=== PATIENT | male | born 1985 | race Caucasian/White ===

== ENCOUNTER 2018-06-06 18:31 | Emergency (ER) | payer OTHER, SELFPAY ==
[2018-06-06 18:35] VITALS: BP 112/87; PULSE 80; RESP 20; TEMP 36.8; O2SAT 98; BMI 20.3
--- NOTE | 2018-06-06 18:50 | DI.RAD.S_ITS ---
PROCEDURE: XR FINGER LT MIN 2V INDICATIONS: cut finger at work TECHNIQUE: AP hand, 2 views of the 5th finger(s) acquired. COMPARISON: None. FINDINGS: Bones: No fractures or dislocations. No suspicious bony lesions. Soft tissues: No suspicious soft tissue calcifications. No radiopaque foreign body within the fifth digit is identified. IMPRESSION: No radiopaque foreign body identified within the soft tissues of the left fifth digit. No acute osseous abnormality of the left fifth digit. Dictated by: Roibn Skinner M.D. on 06/06/2018 at 19:56 Approved by: Robin Skinner M.D. on 06/06/2018 at 19:58
--- NOTE | 2018-06-06 23:02 | ED.UPPEXIN ---
HPI - Extremity Injury (Upper) General Chief Complaint: Extremity Injury, Upper Stated Complaint: laceration to left hand pinky finger Time Seen by Provider: 06/06/18 22:34 Source: patient Mode of arrival: ambulatory Limitations: no limitations History of Present Illness HPI narrative: This is a 32-year-old male comes to the emergency department with complaint of laceration at the knuckle of the 5th finger on the left hand. Patient states he was working, he was working on a garage door when he slipped and cut his hand on the door itself. Patient states he had gloves on. He states that he wiped the area with alcohol but did not wash it out otherwise. He states it looked like it was down to the bone. I has some numbness in the finger but no weakness that he has noticed. Patient's tetanus is not up-to-date, he politely refuses. Patient denies any other injuries. He has had multiple orthopedic injuries and surgeries in the past but denies any other medical history. Related Data Previous Rx's Medication Instructions Recorded ibuprofen 800 mg PO TIDP PRN #30 tab 05/22/16 fluticasone [Flonase Allergy 1 spray INTRANASAL QDAY #1 bot 11/01/16 Relief] clindamycin HCl 300 mg PO QID #40 cap 06/06/18 hydrocodone-acetaminophen [[place]] 1 tab PO Q6H PRN #7 tab 06/06/18 Allergies Allergy/AdvReac Type Severity Reaction Status Date / Time No Known Drug Allergies Allergy Verified 06/06/18 18:38 Review of Systems Review of Systems All systems reviewed & are unremarkable except as noted in HPI and below Constitutional Denies weakness Musculoskeletal Reports as per HPI, Reports numbness (This finger), Reports tingling and Reports other (Laceration hand) Integumentary/Breasts Reports wounds (Laceration) Neurologic Reports numbness (This finger), Reports tingling and Denies weakness [facility] Social History Smoking Status: Current every day smoker Exam Narrative Exam Narrative: GENERAL: Alert and oriented x three, well-nourished, well-appearing male in mild distress. HEENT: Head normocephalic, atraumatic, EOMI, pupils reactive, face symmetric, moist mucous membranes NECK: Supple, full range of motion EXTREMITIES: Normal range of motion, no clubbing or edema. Neurovascularly intact. Patient has a 1/2 cm laceration over the proximal interphalangeal joint on the left hand, 5th digit. The laceration appears deep into the subcutaneous tissue. I am not able to visualize any tendon. Patient has pain with palpation. Bleeding is stopped at this time. Patient has some decreased sensation over the distal end of the finger in comparison to the other fingers. He has full muscle strength with flexion and extension of the finger against resistance. Cap refills less than 2 sec in all 5 fingers. 2+ radial pulse on the left NEUROLOGICAL: Cranial nerves II through XII grossly intact. Moving all extremities SKIN: Warm, dry, no petechiae, no rashes or lesions. Initial Vital Signs Initial Vital Signs: Vital Signs Temperature 98.2 F 06/06/18 18:35 Pulse Rate 80 06/06/18 18:35 Respiratory Rate 20 06/06/18 18:35 Blood Pressure 112/87 06/06/18 18:35 Pulse Oximetry 98 06/06/18 18:35 Procedures Laceration Repair Laceration 1: Site: hand (5th finger) Side (If applicable): left Size (cm): 1.5 Description: linear Depth: simple, single layer Local Anesthetic: lidocaine 1% Amount of anesthesia used (mL): 2.5 Pre-repair: wound explored, irrigated extensively, deep structures intact and extensive debridement Skin layer closed with: nylon Size (cm): 4-0 Number of sutures: 4 Technique: simple, interrupted Course Orders Ordered: Discontinued Medications Hydrocodone Bitart/Acetaminophen (Vicodin Prepack) 1 bottle MISC SEEINSTR ONE Stop: 06/06/18 23:00 Last Admin: 06/06/18 23:05 Dose: 1 bottle Clindamycin HCl (Cleocin) 300 mg PO NOW ONE Stop: 06/06/18 23:00 Last Admin: 06/06/18 23:05 Dose: 300 mg Vital Signs - 8 hr 06/06/18 23:25 Pulse Rate 72 Respiratory Rate 13 Blood Pressure 124/78 Pulse Oximetry 100 MDM - Extremity Injury (Upper) Imaging Data finger xray: Radiologist's impression: [address] [address] XRay Report Signed Patient: Erasmo Bella [facility]#: [id number] : 1985Acct:[id number] Age/Sex: 32 / MDate of Service: 06/06/18 Loc: ED Accession Number: [id number] Procedure: XR finger LT min 2V Ordering Provider: Jany Pete PROCEDURE: XR FINGER LT MIN 2V INDICATIONS: cut finger at work TECHNIQUE: AP hand, 2 views of the 5th finger(s) acquired. COMPARISON: None. FINDINGS: Bones: No fractures or dislocations. No suspicious bony lesions. Soft tissues: No suspicious soft tissue calcifications. No radiopaque foreign body within the fifth digit is identified. IMPRESSION: No radiopaque foreign body identified within the soft tissues of the left fifth digit. No acute osseous abnormality of the left fifth digit. Dictated by: Robin Skinner M.D. on 06/06/2018 at 19:56 Approved by: Robin Skinner M.D. on 06/06/2018 at 19:58 MDM Narrative Medical decision making narrative: Patient has decreased sensation so he may have had some nerve injury but he has full muscle strength and movement the finger. Laceration was repaired, he was started on antibiotics as sounds like may have been a dirty wound although cleaned out here in the department. Patient did not want to have a tetanus and was very clear in this. He is not up-to-date. Patient tolerated procedure well, was placed with a splint to avoid Um pulling or tearing the stitches and then asked to return for removal in 7-10 days. Discussed signs and symptoms to watch for and reasons to return. Discharge Plan Departure Patient Disposition: Home Clinical Impression: Laceration of finger Discharge Date/Time: 06/06/18 23:26 Interventions: ED Discharge Assessment Last Done: 06/06/18 23:25 Instructions: DI for Laceration Repair -- Finger Activity Restrictions/Additional Instructions: Wound Care: Keep wound(s) clean and dry. Wash twice daily with soap and water only. Do not use over the counter products (alcohol or peroxide)on the wounds unless instructed by a physician. You may use triple antibiotic ointment 2 times daily. If wound condition worsens (increased/expanding redness, developing fluid blisters, or worsening pain), either contact your doctor for an urgent re-assessment , or return to the Emergency Department. Avoid bending or flexing at the knuckle, where splint to prevent bending and tearing out of sutures. Return to the Emergency Department for any new or worsening symptoms. Return to the ED, urgent care, or vist a primary care doctor for removal or suture or jonel in 7-10 days. Return if fever greater than 100.4 Fahrenheit, increased swelling, increasing pain or worsening symptoms such as increased discharge or spreading redness. Use warm compresses 3 times daily for 20 minutes to the affected area. If there is packing in place do not pull it out, if it falls out do not try to replace it. Prescriptions: New clindamycin HCl 300 mg capsule 300 mg PO QID Qty: 40 RF: 0 hydrocodone-acetaminophen [[place]] 5-325 mg tablet 1 tab PO Q6H PRN (Reason: pain) Qty: 7 RF: 0 No Action ibuprofen 800 MG tablet 800 mg PO TIDP PRNQty: 30 RF: 0 fluticasone [Flonase Allergy Relief] 9.9 ML spray,suspension 1 spray Intranasal QDAY Qty: 1 RF: 0
[2018-06-06] MEDS: CLINDAMYCIN 150 MG CAPSULE 300 MG PO (23:05)
[2018-06-06] MEDS: HYDROCODONE/ACET 5/325 PREPACK 1 BOTTLE MISC (23:05)
[2018-06-06 23:25] VITALS: BP 124/78; PULSE 72; RESP 13; O2SAT 100
--- NOTE | 2018-06-07 04:23 | ED_ITS ---
HPI - Extremity Injury (Upper) General Chief Complaint: Extremity Injury, Upper Stated Complaint: laceration to left hand pinky finger Time Seen by Provider: 06/06/18 22:34 Source: patient Mode of arrival: ambulatory Limitations: no limitations History of Present Illness HPI narrative: This is a 32-year-old male comes to the emergency department with complaint of laceration at the knuckle of the 5th finger on the left hand. Patient states he was working, he was working on a garage door when he slipped and cut his hand on the door itself. Patient states he had gloves on. He states that he wiped the area with alcohol but did not wash it out otherwise. He states it looked like it was down to the bone. I has some numbness in the finger but no weakness that he has noticed. Patient's tetanus is not up-to-date, he politely refuses. Patient denies any other injuries. He has had multiple orthopedic injuries and surgeries in the past but denies any other medical history. Related Data Previous Rx's Medication Instructions Recorded ibuprofen 800 mg PO TIDP PRN #30 tab 05/22/16 fluticasone [Flonase Allergy 1 spray INTRANASAL QDAY #1 bot 11/01/16 Relief] clindamycin HCl 300 mg PO QID #40 cap 06/06/18 hydrocodone-acetaminophen [[place]] 1 tab PO Q6H PRN #7 tab 06/06/18 Allergies Allergy/AdvReac Type Severity Reaction Status Date / Time No Known Drug Allergies Allergy Verified 06/06/18 18:38 Review of Systems Review of Systems All systems reviewed & are unremarkable except as noted in HPI and below Constitutional Denies weakness Musculoskeletal Reports as per HPI, Reports numbness (This finger), Reports tingling and Reports other (Laceration hand) Integumentary/Breasts Reports wounds (Laceration) Neurologic Reports numbness (This finger), Reports tingling and Denies weakness [facility] Social History Smoking Status: Current every day smoker Exam Narrative Exam Narrative: GENERAL: Alert and oriented x three, well-nourished, well- appearing male in mild distress. HEENT: Head normocephalic, atraumatic, EOMI, pupils reactive, face symmetric, moist mucous membranes NECK: Supple, full range of motion EXTREMITIES: Normal range of motion, no clubbing or edema. Neurovascularly intact. Patient has a 1/2 cm laceration over the proximal interphalangeal joint on the left hand, 5th digit. The laceration appears deep into the subcutaneous tissue. I am not able to visualize any tendon. Patient has pain with palpation. Bleeding is stopped at this time. Patient has some decreased sensation over the distal end of the finger in comparison to the other fingers. He has full muscle strength with flexion and extension of the finger against resistance. Cap refills less than 2 sec in all 5 fingers. 2+ radial pulse on the left NEUROLOGICAL: Cranial nerves II through XII grossly intact. Moving all extremities SKIN: Warm, dry, no petechiae, no rashes or lesions. Initial Vital Signs Initial Vital Signs: Vital Signs Temperature 98.2 F 06/06/18 18:35 Pulse Rate 80 06/06/18 18:35 Respiratory Rate 20 06/06/18 18:35 Blood Pressure 112/87 06/06/18 18:35 Pulse Oximetry 98 06/06/18 18:35 Procedures Laceration Repair Laceration 1: Site: hand (5th finger) Side (If applicable): left Size (cm): 1.5 Description: linear Depth: simple, single layer Local Anesthetic: lidocaine 1% Amount of anesthesia used (mL): 2.5 Pre-repair: wound explored, irrigated extensively, deep structures intact and extensive debridement Skin layer closed with: nylon Size (cm): 4-0 Number of sutures: 4 Technique: simple, interrupted Course Orders Ordered: Discontinued Medications Hydrocodone Bitart/Acetaminophen (Vicodin Prepack) 1 bottle MISC SEEINSTR ONE Stop: 06/06/18 23:00 Last Admin: 06/06/18 23:05 Dose: 1 bottle Clindamycin HCl (Cleocin) 300 mg PO NOW ONE Stop: 06/06/18 23:00 Last Admin: 06/06/18 23:05 Dose: 300 mg Vital Signs - 8 hr 06/06/18 23:25 Pulse Rate 72 Respiratory Rate 13 Blood Pressure 124/78 Pulse Oximetry 100 MDM - Extremity Injury (Upper) Imaging Data finger xray: Radiologist's impression: [address] [address] XRay Report Signed Patient: Erasmo Bella [facility]#: [id number] : 1985Acct:[id number] Age/Sex: 32 / MDate of Service: 06/06/18 Loc: ED Accession Number: [id number] Procedure: XR finger LT min 2V Ordering Provider: Jany Pete PROCEDURE: XR FINGER LT MIN 2V INDICATIONS: cut finger at work TECHNIQUE: AP hand, 2 views of the 5th finger(s) acquired. COMPARISON: None. FINDINGS: Bones: No fractures or dislocations. No suspicious bony lesions. Soft tissues: No suspicious soft tissue calcifications. No radiopaque foreign body within the fifth digit is identified. IMPRESSION: No radiopaque foreign body identified within the soft tissues of the left fifth digit. No acute osseous abnormality of the left fifth digit. Dictated by: Robin Skinner M.D. on 06/06/2018 at 19:56 Approved by: Robin Skinner M.D. on 06/06/2018 at 19:58 MDM Narrative Medical decision making narrative: Patient has decreased sensation so he may have had some nerve injury but he has full muscle strength and movement the finger. Laceration was repaired, he was started on antibiotics as sounds like may have been a dirty wound although cleaned out here in the department. Patient did not want to have a tetanus and was very clear in this. He is not up -to-date. Patient tolerated procedure well, was placed with a splint to avoid Um pulling or tearing the stitches and then asked to return for removal in 7-10 days. Discussed signs and symptoms to watch for and reasons to return. Discharge Plan Departure Patient Disposition: Home Clinical Impression: Laceration of finger Discharge Date/Time: 06/06/18 23:26 Interventions: ED Discharge Assessment Last Done: 06/06/18 23:25 Instructions: DI for Laceration Repair -- Finger Activity Restrictions/Additional Instructions: Wound Care: Keep wound(s) clean and dry. Wash twice daily with soap and water only. Do not use over the counter products (alcohol or peroxide)on the wounds unless instructed by a physician. You may use triple antibiotic ointment 2 times daily. If wound condition worsens (increased/expanding redness, developing fluid blisters, or worsening pain), either contact your doctor for an urgent re- assessment , or return to the Emergency Department. Avoid bending or flexing at the knuckle, where splint to prevent bending and tearing out of sutures. Return to the Emergency Department for any new or worsening symptoms. Return to the ED, urgent care, or vist a primary care doctor for removal or suture or jonel in 7-10 days. Return if fever greater than 100.4 Fahrenheit, increased swelling, increasing pain or worsening symptoms such as increased discharge or spreading redness. Use warm compresses 3 times daily for 20 minutes to the affected area. If there is packing in place do not pull it out, if it falls out do not try to replace it. Prescriptions: New clindamycin HCl 300 mg capsule 300 mg PO QID Qty: 40 RF: 0 hydrocodone-acetaminophen [[place]] 5-325 mg tablet 1 tab PO Q6H PRN (Reason: pain) Qty: 7 RF: 0 No Action ibuprofen 800 MG tablet 800 mg PO TIDP PRNQty: 30 RF: 0 fluticasone [Flonase Allergy Relief] 9.9 ML spray,suspension 1 spray Intranasal QDAY Qty: 1 RF: 0
== END 2018-06-06 23:26 | disposition home or self-care (01) ==
PROVIDERS: Emergency Provider Emergency Medicine
DX: S61.217A Laceration without foreign body of left little finger without damage to nail, initial encounter (principal); W26.8XXA Contact with other sharp object(s), not elsewhere classified, initial encounter; Y99.0 Civilian activity done for income or pay
CPT/HCPCS: 12001; 73140; 99282; 99283

== ENCOUNTER 2019-03-08 12:05 | Emergency (ER) | payer OTHER, MEDICAID, SELFPAY ==
[2019-03-08 12:05] VITALS: BP 130/78; PULSE 81; RESP 15; TEMP 37.1; O2SAT 98
--- NOTE | 2019-03-08 12:20 | ED.URI ---
HPI - URI/Sore Throat <DENIS Alvarez - Last Filed: 03/08/19 13:10> General Chief Complaint: Upper Respiratory Symptoms Stated Complaint: Possible strep throat Time Seen by Provider: 03/08/19 12:09 Source: patient Mode of arrival: ambulatory Limitations: no limitations History of Present Illness HPI Narrative: The patient is a 33-year-old male current smoker with history of broken hand who presents with a chief complaint of a sore throat. It has been going on since last week when he went to see [email or web address]. He states that he lost his voice within last night his throat started burning worse than before. He does not abuse exposed to any sick people at the [employer]. He denies any fevers nausea vomiting or diarrhea. Denies any chest pain, respiratory distress, shortness of breath, cough or ear pain. Related Data Previous Rx's Medication Instructions Recorded fluticasone propionate [Flonase 1 spray INTRANASAL QDAY #1 bot 11/01/16 Allergy Relief] Allergies Allergy/AdvReac Type Severity Reaction Status Date / Time No Known Drug Allergies Allergy Verified 06/06/18 18:38 Review of Systems <DENIS Alvarez - Last Filed: 03/08/19 13:10> Review of Systems GENERAL: Denies chills, fatigue, malaise, fever, sweats. HEENT: See HPI RESPIRATORY: Denies dyspnea, cough, wheezing, hemoptysis, sputum. CARDIOVASCULAR: Denies chest pain, palpitations, orthopnea, edema, GASTROINTESTINAL: Denies nausea, vomiting, abdominal pain, diarrhea, constipation, melena. : Denies dysuria, frequency, incontinence, hematuria, urinary retention. MUSCULOSKELETAL: denies weakness, joint pain, or bony pain SKIN: Denies rash, skin lesions, or other NEUROLOGIC: Denies weakness, headache, numbness, change in speech, confusion, seizures, incoordination. PSYCHIATRIC: No concerning psychosocial issues. 12 point review of systems is negative except for those stated above PFSH <DENIS Alvarez - Last Filed: 03/08/19 13:10> Medical History (Updated 03/08/19 @ 12:50 by DENIS Alvaerz) Family history non-contributory (Acute) Social History Smoking Status: Current every day smoker Social History Smoking Status: Current every day smoker Exam <DENIS Alvarez - Last Filed: 03/08/19 13:10> Narrative Exam Narrative: GENERAL: This is a well-nourished, well-developed patient, in mild distress. HEAD: Atraumatic. Normocephalic. No temporal or scalp tenderness. EYES: Pupils equal round and reactive. Extraocular motions intact. No scleral icterus. No injection or drainage. ENT: Nose without bleeding, purulent drainage or septal hematoma. Throat with slight erythema but no tonsillar hypertrophy and no exudate. Uvula midline. Airway patent. NECK: Trachea midline. No JVD or lymphadenopathy. Supple, nontender, no meningeal signs. CARDIOVASCULAR: Regular rate and rhythm without murmurs, gallops, or rubs. RESPIRATORY: Clear to auscultation. Breath sounds equal bilaterally. No wheezes, rales, or rhonchi. No cough. No increased respiratory effort. No accessory muscle use. No retractions. GASTROINTESTINAL: Abdomen soft, non-tender, nondistended. No hepato-splenomegaly, or palpable masses. No guarding. EXTREMITIES: No clubbing, cyanosis, or edema. No joint tenderness, effusion, or edema noted. BACK: Nontender without deformity or crepitance. No flank tenderness. NEURO: AOx3. SKIN: No rash or erythema. Initial Vital Signs Initial Vital Signs: Vital Signs Temperature 98.8 F 03/08/19 12:05 Pulse Rate 81 03/08/19 12:05 Respiratory Rate 15 03/08/19 12:05 Blood Pressure 130/78 03/08/19 12:05 Pulse Oximetry 98 03/08/19 12:05 <Jermaine Lobo DO - Last Filed: 03/08/19 14:33> Initial Vital Signs Initial Vital Signs: Vital Signs Temperature 98.8 F 03/08/19 12:05 Pulse Rate 81 03/08/19 12:05 Respiratory Rate 15 03/08/19 12:05 Blood Pressure 130/78 03/08/19 12:05 Pulse Oximetry 98 03/08/19 12:05 Course <DENIS Alvarez - Last Filed: 03/08/19 13:10> Vital Signs - 8 hr 03/08/19 12:05 Temperature 98.8 F Pulse Rate 81 Respiratory Rate 15 Blood Pressure 130/78 Pulse Oximetry 98 <Jermaine ChowDO serafin - Last Filed: 03/08/19 14:33> Vital Signs - 8 hr 03/08/19 12:05 Temperature 98.8 F Pulse Rate 81 Respiratory Rate 15 Blood Pressure 130/78 Pulse Oximetry 98 MDM - URI/Sore Throat <LUCÍA Alvarez-BC - Last Filed: 03/08/19 13:10> Lab Data Point of Care Testing Rapid Strep A Negative MDM Narrative Medical decision making narrative: The patient is a 33-year-old male who presents with a chief complaint of a sore throat. He is concerned about strep throat given the last night his sore throat got worse. He is afebrile in the emergency department, denies any fevers nausea vomiting or diarrhea. Denies ear pain. He tested negative for strep in the ER. I discussed at length symptomatic care, not using antibiotics for viral illnesses. It is suspicious that he had pharyngitis with his sore throat, indicating a likely viral syndrome. Encouraged [id number] remedies such as Cepacol. I discussed at length follow up with PCP in coming back to the ER for any acute concerns. Patient has no questions or concerns upon discharge. <Jermaine LoboDO - Last Filed: 03/08/19 14:33> Lab Data Point of Care Testing Rapid Strep A Negative Discharge Plan Departure Patient Disposition: Home Clinical Impression: Pharyngitis Qualifiers: Pharyngitis/tonsillitis etiology: unspecified etiology Qualified Code(s): J02.9 - Acute pharyngitis, unspecified Discharge Date/Time: 03/08/19 13:06 Interventions: ED Discharge Assessment Last Done: 03/08/19 13:06 Instructions: DI for Pharyngitis/Tonsillopharyngitis -- Adult Activity Restrictions/Additional Instructions: Your strep test came back negative in the emergency department. Please follow up with primary care provider as needed. I have given you contact information for the [facility] educational resource coordinator, who can help you identified PCP. Other resources include the [facility], [facility], etc. Please monitor for difficulty breathing, lack of improvement, worsening, concern of heart attack or stroke. Please come back to emergency department for any acute concerns. Prescriptions: No Action fluticasone propionate [Flonase Allergy Relief] 9.9 ML spray,suspension 1 spray Intranasal QDAY Qty: 1 RF: 0 Referrals: [facility] [Outside] <Jermaine Lobo DO - Last Filed: 03/08/19 14:33> Cosign ED Attending Butch Attestation: I was available for consultation during this patient's emergency department encounter
--- NOTE | 2019-03-08 12:23 | ED_ITS ---
HPI - URI/Sore Throat <DENIS Alvarez - Last Filed: 03/08/19 13:10> General Chief Complaint: Upper Respiratory Symptoms Stated Complaint: Possible strep throat Time Seen by Provider: 03/08/19 12:09 Source: patient Mode of arrival: ambulatory Limitations: no limitations History of Present Illness HPI Narrative: The patient is a 33-year-old male current smoker with history of broken hand who presents with a chief complaint of a sore throat. It has been going on since last week when he went to see [employer]. He states that he lost his voice within last night his throat started burning worse than before. He does not abuse exposed to any sick people at the [employer]. He denies any fevers nausea vomiting or diarrhea. Denies any chest pain, respiratory distress, shortness of breath, cough or ear pain. Related Data Previous Rx's Medication Instructions Recorded fluticasone propionate [Flonase 1 spray INTRANASAL QDAY #1 bot 11/01/16 Allergy Relief] Allergies Allergy/AdvReac Type Severity Reaction Status Date / Time No Known Drug Allergies Allergy Verified 06/06/18 18:38 Review of Systems <DENIS Alvarez - Last Filed: 03/08/19 13:10> Review of Systems GENERAL: Denies chills, fatigue, malaise, fever, sweats. HEENT: See HPI RESPIRATORY: Denies dyspnea, cough, wheezing, hemoptysis, sputum. CARDIOVASCULAR: Denies chest pain, palpitations, orthopnea, edema, GASTROINTESTINAL: Denies nausea, vomiting, abdominal pain, diarrhea, constipation, melena. : Denies dysuria, frequency, incontinence, hematuria, urinary retention. MUSCULOSKELETAL: denies weakness, joint pain, or bony pain SKIN: Denies rash, skin lesions, or other NEUROLOGIC: Denies weakness, headache, numbness, change in speech, confusion, seizures, incoordination. PSYCHIATRIC: No concerning psychosocial issues. 12 point review of systems is negative except for those stated above PFSH <DENIS Alvarez - Last Filed: 03/08/19 13:10> Medical History (Updated 03/08/19 @ 12:50 by DENIS Alvarez) Family history non-contributory (Acute) Social History Smoking Status: Current every day smoker Social History Smoking Status: Current every day smoker Exam <DENIS Alvarez - Last Filed: 03/08/19 13:10> Narrative Exam Narrative: GENERAL: This is a well-nourished, well-developed patient, in mild distress. HEAD: Atraumatic. Normocephalic. No temporal or scalp tenderness. EYES: Pupils equal round and reactive. Extraocular motions intact. No scleral icterus. No injection or drainage. ENT: Nose without bleeding, purulent drainage or septal hematoma. Throat with slight erythema but no tonsillar hypertrophy and no exudate. Uvula midline. Airway patent. NECK: Trachea midline. No JVD or lymphadenopathy. Supple, nontender, no meningeal signs. CARDIOVASCULAR: Regular rate and rhythm without murmurs, gallops, or rubs. RESPIRATORY: Clear to auscultation. Breath sounds equal bilaterally. No wheezes, rales, or rhonchi. No cough. No increased respiratory effort. No accessory muscle use. No retractions. GASTROINTESTINAL: Abdomen soft, non-tender, nondistended. No hepato- splenomegaly, or palpable masses. No guarding. EXTREMITIES: No clubbing, cyanosis, or edema. No joint tenderness, effusion, or edema noted. BACK: Nontender without deformity or crepitance. No flank tenderness. NEURO: AOx3. SKIN: No rash or erythema. Initial Vital Signs Initial Vital Signs: Vital Signs Temperature 98.8 F 03/08/19 12:05 Pulse Rate 81 03/08/19 12:05 Respiratory Rate 15 03/08/19 12:05 Blood Pressure 130/78 03/08/19 12:05 Pulse Oximetry 98 03/08/19 12:05 <Jermaine Lobo DO - Last Filed: 03/08/19 14:33> Initial Vital Signs Initial Vital Signs: Vital Signs Temperature 98.8 F 03/08/19 12:05 Pulse Rate 81 03/08/19 12:05 Respiratory Rate 15 03/08/19 12:05 Blood Pressure 130/78 03/08/19 12:05 Pulse Oximetry 98 03/08/19 12:05 Course <DENIS Alvarez - Last Filed: 03/08/19 13:10> Vital Signs - 8 hr 03/08/19 12:05 Temperature 98.8 F Pulse Rate 81 Respiratory Rate 15 Blood Pressure 130/78 Pulse Oximetry 98 <Jemraine ChowDO serafin - Last Filed: 03/08/19 14:33> Vital Signs - 8 hr 03/08/19 12:05 Temperature 98.8 F Pulse Rate 81 Respiratory Rate 15 Blood Pressure 130/78 Pulse Oximetry 98 MDM - URI/Sore Throat <LUCÍA Alvarez-BC - Last Filed: 03/08/19 13:10> Lab Data Point of Care Testing Rapid Strep A Negative MDM Narrative Medical decision making narrative: The patient is a 33-year-old male who presents with a chief complaint of a sore throat. He is concerned about strep throat given the last night his sore throat got worse. He is afebrile in the emergency department, denies any fevers nausea vomiting or diarrhea. Denies ear pain. He tested negative for strep in the ER. I discussed at length symptomatic care, not using antibiotics for viral illnesses. It is suspicious t hat he had pharyngitis with his sore throat, indicating a likely viral syndrome. Encouraged ksgw-kll-yfarnds remedies such as Cepacol. I discussed at length follow up with PCP in coming back to the ER for any acute concerns. Patient has no questions or concerns upon discharge. <Jermaine ChowDO serafin - Last Filed: 03/08/19 14:33> Lab Data Point of Care Testing Rapid Strep A Negative Discharge Plan Departure Patient Disposition: Home Clinical Impression: Pharyngitis Qualifiers: Pharyngitis/tonsillitis etiology: unspecified etiology Qualified Code(s): J02.9 - Acute pharyngitis, unspecified Discharge Date/Time: 03/08/19 13:06 Interventions: ED Discharge Assessment Last Done: 03/08/19 13:06 Instructions: DI for Pharyngitis/Tonsillopharyngitis -- Adult Activity Restrictions/Additional Instructions: Your strep test came back negative in the emergency department. Please follow up with primary care provider as needed. I have given you contact information for the [facility] human resources recruiter, who can help you identified PCP. Other resources include the [facility], [facility], etc. Please monitor for difficulty breathing, lack of improvement, worsening, concern of heart attack or stroke. Please come back to emergency department for any acute concerns. Prescriptions: No Action fluticasone propionate [Flonase Allergy Relief] 9.9 ML spray,suspension 1 spray Intranasal QDAY Qty: 1 RF: 0 Referrals: [facility] [Outside] <Jermaine Lobo DO - Last Filed: 03/08/19 14:33> Cosign ED Attending Franciaature Attestation: I was available for consultation during this patient's emergency department encounter
== END 2019-03-08 13:06 | disposition home or self-care (01) ==
PROVIDERS: Emergency Provider Nurse Practitioner Family
DX: J02.9 Acute pharyngitis, unspecified (principal)
CPT/HCPCS: 87880; 99282; 99283

== ENCOUNTER 2021-07-07 12:40 | Emergency (ER) | payer SELFPAY ==
[2021-07-07 13:04] VITALS: BP 144/79; PULSE 104; RESP 16; TEMP 36.8; O2SAT 97; BMI 20.9
[2021-07-07] MEDS: KETOROLAC 30 MG/ML VIAL IM (13:56)
--- NOTE | 2021-07-07 14:29 | ED_ITS ---
HPI - URI/Sore Throat <DENIS Alvarez - Last Filed: 07/07/21 15:21> General Chief Complaint: Upper Respiratory Symptoms Stated Complaint: throat hurts Time Seen by Provider: 07/07/21 13:08 Source: patient Mode of arrival: Ambulatory Limitations: no limitations History of Present Illness HPI Narrative: The patient is a 35-year-old male current smoker who presents with a chief complaint of sore throat for the past 6 weeks or so. He denies any fevers nausea vomiting or diarrhea. He has not taken anything to feel better the knee occasional DayQuil or NyQuil. He states that he did have COVID a few months ago, is not vaccinated for COVID. No known strep exposures. No cough. Does note slight congestion. The patient states that he smokes marijuana and cigarettes. States that he has a history of acid reflux but it is ?well controlled.Denies any ear pain or pressure Related Data Previous Rx's Medication Instructions Recorded fluticasone propionate 50 1 spray INTRANASAL QDAY #1 bot 11/01/16 mcg/actuation nasal spray,suspension (Flonase Allergy Relief) Allergies Allergy/AdvReac Type Severity Reaction Status Date / Time No Known Drug Allergies Allergy Verified 07/07/21 13:04 Review of Systems <DENIS Alvarez - Last Filed: 07/07/21 15:21> Review of Systems Narrative: GENERAL: Denies chills, fatigue, malaise, fever, sweats. HEENT: See HPI RESPIRATORY: Denies dyspnea, cough, wheezing, hemoptysis, sputum. CARDIOVASCULAR: Denies chest pain, palpitations, orthopnea, edema, GASTROINTESTINAL: Denies nausea, vomiting, abdominal pain, diarrhea, constipation, melena. : Denies dysuria, frequency, incontinence, hematuria, urinary retention. MUSCULOSKELETAL: denies weakness, joint pain, or bony pain SKIN: Denies rash, skin lesions, or other NEUROLOGIC: Denies weakness, headache, numbness, change in speech, confusion, seizures, incoordination. PSYCHIATRIC: No concerning psychosocial issues. 12 point review of systems is negative except for those stated above Patient History <DENIS Alvarez - Last Filed: 07/07/21 15:21> Medical History (Updated 07/07/21 @ 14:32 by DENIS Alvarez) Family history non-contributory Social History Smoking Status: Current every day smoker Smoking Status: Current every day smoker alcohol intake frequency: a few times a week Substance Use Type: marijuana Exam <DENIS Alvarez - Last Filed: 07/07/21 15:21> Narrative Exam Narrative: GENERAL: This is a well-nourished, well-developed patient, no acute distress HEAD: Atraumatic. Normocephalic. No temporal or scalp tenderness. EYES: Pupils equal round and reactive. Extraocular motions intact. No scleral icterus. No injection or drainage. ENT: Nose without bleeding, purulent drainage or septal hematoma. Throat without erythema, tonsillar hypertrophy or exudate. Uvula midline. Slight red raised bumps noted on posterior aspect of tongue. Airway patent. Bilateral TMs pearly pham. NECK: Trachea midline. No JVD or lymphadenopathy. Supple, nontender, no meningeal signs. CARDIOVASCULAR: Regular rate and rhythm RESPIRATORY: Clear to auscultation. Breath sounds equal bilaterally. No wheezes, rales, or rhonchi. No cough. No increased respiratory effort. No accessory muscle use. EXTREMITIES: No clubbing, cyanosis, or edema. No joint tenderness, effusion, or edema noted. BACK: Nontender without deformity or crepitance. No flank tenderness. NEURO: AOx3. SKIN: No rash or erythema on visible skin Initial Vital Signs Initial Vital Signs: Vital Signs Temperature 98.3 F 07/07/21 13:04 Pulse Rate 104 H 07/07/21 13:04 Respiratory Rate 16 07/07/21 13:04 Blood Pressure 144/79 H 07/07/21 13:04 Pulse Oximetry 97 07/07/21 13:04 <Jermaine Lobo DO - Last Filed: 07/07/21 17:45> Initial Vital Signs Initial Vital Signs: Vital Signs Temperature 98.3 F 07/07/21 13:04 Pulse Rate 104 H 07/07/21 13:04 Respiratory Rate 16 07/07/21 13:04 Blood Pressure 144/79 H 07/07/21 13:04 Pulse Oximetry 97 07/07/21 13:04 Scores <DENIS Alvarez - Last Filed: 07/07/21 15:21> GCS [place] coma scale eye opening: Spontaneous Lisa coma scale verbal response: Orientated [place] coma scale motor response: Obey commands [place] coma scale total score: 15 <Jermaine Lobo DO - Last Filed: 07/07/21 17:45> GCS Lisa coma scale total score: 15 Course <DENIS Alvarez - Last Filed: 07/07/21 15:21> Orders Ordered: ED Orders 07/07/21 13:49 Throat Culture Stat Discontinued Medications Ketorolac Tromethamine (Ketorolac 30 Mg/Ml Vial) 30 mg IM NOW ONE Stop: 07/07/21 13:44 Last Admin: 07/07/21 13:56 Dose: 30 mg Documented by: DHRUV Vital Signs Vital signs: Vital Signs - 8 hr 07/07/21 13:04 Temperature 98.3 F Pulse Rate 104 H Respiratory Rate 16 Blood Pressure 144/79 H Pulse Oximetry 97 <Jermaine Lobo DO - Last Filed: 07/07/21 17:45> Orders Ordered: ED Orders 07/07/21 13:49 Throat Culture Stat Discontinued Medications Ketorolac Tromethamine (Ketorolac 30 Mg/Ml Vial) 30 mg IM NOW ONE Stop: 07/07/21 13:44 Last Admin: 07/07/21 13:56 Dose: 30 mg Documented by: DHRUV Vital Signs Vital signs: Vital Signs - 8 hr 07/07/21 13:04 Temperature 98.3 F Pulse Rate 104 H Respiratory Rate 16 Blood Pressure 144/79 H Pulse Oximetry 97 MDM - URI/Sore Throat <DENIS Alvarez - Last Filed: 07/07/21 15:21> Lab Data Labs: Point of Care Testing Rapid Strep A Negative MDM Narrative Medical decision making narrative: The patient is a 35-year-old male who presents with several weeks of sore throat. He test negative for rapid strep today. Throat culture and viral culture given raise red thumbs is pending. Discussed at length crte-osj-mssnymh measures such as Tylenol, Motrin, Cepacol etcetera. Encouraged follow-up with primary care provider and gave him contact information to obtain a primary care provider. Patient has been hemodynamically stable in no acute distress throughout his stay in the emergency department. Patient has no questions or concerns upon discharge states understanding return precautions as well as follow-up care. <Jermaine Lobo DO - Last Filed: 07/07/21 17:45> Lab Data Labs: Point of Care Testing Rapid Strep A Negative Discharge Plan Departure Patient Disposition: Home Clinical Impression: Pharyngitis Instructions: Sore Throat, DI for Viral Pharyngitis Activity Restrictions/Additional Instructions: Thank you for trusting us with your care today. As discussed your rapid strep is negative. Will take a few days with a throat culture and throat viral c ulture to return. If something comes up on those we will call you. In the meantime please use zhku-ncw-xvrmizm remedies as needed and able such as Tylenol, ibuprofen, I also recommend numbing throat sprays and drops such as Cepacol. Please be sure to use a humidifier in your bedroom, make sure that your mucous membranes are not getting to dry, and avoid smoking. You can contact [phone] to help establish a primary care provider. Please come back to the emergency department for any acute concerns Prescriptions: No Action fluticasone propionate [Flonase Allergy Relief] 9.9 ML spray,suspension 1 spray Intranasal QDAY Qty: 1 0RF <Jermaine Lobo DO - Last Filed: 07/07/21 17:45> Cosign ED Attending Cosignature Attestation: Dr Lobo Co-Sign Statement: I was available for consultation during this patient's emergency department visit. This chart is signed by myself for administrative purposes only. I did not have direct contact with this patient during this visit. They were seen independently by the [facility].
--- NOTE | 2021-07-08 15:00 | PC.NURSE ---
Pt returned for repeat viral culture ,incorrect swab was taken yesterday.
== END 2021-07-07 14:59 | disposition home or self-care (01) ==
PROVIDERS: Emergency Provider Nurse Practitioner Family
DX: J02.9 Acute pharyngitis, unspecified (principal); F17.200 Nicotine dependence, unspecified, uncomplicated
CPT/HCPCS: 87070; 87077; 87147; 87252; 87880; 96372; 99283; J1885

== ENCOUNTER 2021-07-26 12:09 | Emergency (ER) | payer OTHER, SELFPAY ==
[2021-07-26 13:41] VITALS: BP 134/73; PULSE 65; RESP 22; TEMP 37.1; O2SAT 99
--- NOTE | 2021-07-26 15:06 | ED.URI ---
HPI - URI/Sore Throat General Chief Complaint: Upper Respiratory Symptoms Stated Complaint: strep throat Time Seen by Provider: 07/26/21 15:04 Source: patient Mode of arrival: Ambulatory History of Present Illness HPI Narrative: The patient is a 35-year-old male with no past medical history presenting with continuation of sore throat. He was seen evaluated here on July 07 he had antibiotics called into him amoxicillin for group C strep. He finished amoxicillin twice a day a few days ago. He has woken up the last few mornings feeling like his tongue is a little bit swollen. And feels like his taste buds might be a little off. He has no difficulty swallowing managing his own secretions or breathing. He denies any fever or chills. He quit smoking both cigarettes and marijuana recently. He had COVID 3 months ago and is not vaccinated. Related Data Previous Rx's Medication Instructions Recorded fluticasone propionate 50 1 spray INTRANASAL QDAY #1 bot 11/01/16 mcg/actuation nasal spray,suspension (Flonase Allergy Relief) Allergies Allergy/AdvReac Type Severity Reaction Status Date / Time No Known Drug Allergies Allergy Verified 07/07/21 13:04 Review of Systems Review of Systems Narrative: GENERAL: Denies chills, fatigue, malaise, fever, sweats, travel HEENT: see HPI RESPIRATORY: Denies dyspnea, cough, wheezing, hemoptysis, sputum. CARDIOVASCULAR: Denies chest pain, palpitations, orthopnea, edema GASTROINTESTINAL: Denies nausea, vomiting, abdominal pain, diarrhea, constipation, melena. : Denies dysuria, frequency, incontinence, hematuria, urinary retention, flank pain. MUSCULOSKELETAL: Denies weakness, joint pain, or bony pain SKIN: No rash, no erythema, no pruritus NEUROLOGIC: Denies weakness, dizziness, headache, numbness, change in speech, confusion PSYCHIATRIC: No concerning psychosocial issues. 12 point review of systems is negative except for those stated above and HPI Patient History Medical History (Updated 07/26/21 @ 15:53 by Ingrid Cordova DO) Family history non-contributory Social History Smoking Status: Current every day smoker Smoking Status: Current every day smoker alcohol intake frequency: a few times a week Substance Use Type: marijuana Exam Initial Vital Signs Initial Vital Signs: Vital Signs Temperature 98.8 F 07/26/21 13:41 Pulse Rate 65 07/26/21 13:41 Respiratory Rate 22 07/26/21 13:41 Blood Pressure 134/73 07/26/21 13:41 Pulse Oximetry 99 07/26/21 13:41 GENERAL: Well-appearing, well-nourished and in no acute distress. PHARYNX: NO ERYTHEMA NO UVULAR SWELLING OR DEVIATION NO CERVICAL LYMPHADENOPATHY SPEAKING IN FULL SENTENCES NO STRIDOR MANAGING SECRETIONS CARDIOVASCULAR: peripheral pulses in tact, cap refill <2 sec RESPIRATORY: No respiratory distress, speaks in full sentences without difficulty EXTREMITIES: Normal range of motion, no clubbing or edema. Neurovascularly intact NEUROLOGICAL: Cranial nerves II through XII grossly intact. Normal gait and speech. SKIN: Warm, dry, no petechiae, no rashes or lesions. Course Orders Ordered: ED Orders 07/26/21 15:18 COVID19 -Nasal swab/Pre-Proc Stat Throat Culture Stat Vital Signs Vital signs: Vital Signs - 8 hr 07/26/21 13:41 Temperature 98.8 F Pulse Rate 65 Respiratory Rate 22 Blood Pressure 134/73 Pulse Oximetry 99 MDM - URI/Sore Throat Lab Data Labs: Lab Results 07/26/21 Range/Units 15:18 SARS-CoV-2 (PCR) Negative (Negative) Point of Care Testing Rapid Strep A Negative [facility] Narrative Medical decision making narrative: Patient was recently treated for strep C finished appropriate course of antibiotics. His rapid strep is negative today his exam is overall reassuring COVID test negative. This time possible other virus however he no need for continuation a repeat course of antibiotics. Discharge Plan Departure Patient Disposition: Home Clinical Impression: Upper respiratory infection Instructions: DI for Viral Upper Respiratory Infection -- Adult Activity Restrictions/Additional Instructions: *You have been diagnosed with upper respiratory infection *What to do: At this time COVID and strep negative no need for any further *Continue to take medications as directed *Follow up with your primary care provider in 2-3 days or call [phone] *Return to ER if you should have inability to swallow, fever more than 101 or any new, worsening or concerning symptoms Prescriptions: No Action fluticasone propionate [Flonase Allergy Relief] 9.9 ML spray,suspension 1 spray Intranasal QDAY Qty: 1 0RF
[2021-07-26 15:51] LABS: COVID19 -Nasal RAPID Negative (Negative)
== END 2021-07-26 15:55 | disposition home or self-care (01) ==
PROVIDERS: Emergency Provider Emergency Medicine
DX: J06.9 Acute upper respiratory infection, unspecified (principal); F17.200 Nicotine dependence, unspecified, uncomplicated; Z20.822 Contact with and (suspected) exposure to COVID-19
CPT/HCPCS: 87070; 87635; 87880; 99281; 99282; C9803

== ENCOUNTER 2022-11-02 03:55 | Emergency (ER) | payer BC, SELFPAY ==
[2022-11-02 04:04] VITALS: BP 142/84; PULSE 102; RESP 18; TEMP 36.6; O2SAT 98; BMI 22.4
--- NOTE | 2022-11-02 04:16 | ED_ITS ---
HPI - Wound/Laceration General Chief Complaint: Wound/Laceration Stated Complaint: hole in forearm rt arm Time Seen by Provider: 11/02/22 04:16 Source: patient Mode of arrival: Ambulatory Limitations: no limitations History of Present Illness HPI narrative: Patient is a 37-year-old male here for evaluation of a cut to the palm of his right hand. He states that the event occurred several hours ago when he was try ing to put some ice in a glass and the glass broke. He then washed it with some water and covered it with super glue. He came in to the department today because the bleeding reoccurred. No other injuries from the event Related Data Previous Rx's Medication Instructions Recorded fluticasone propionate 50 1 spray intranasal QDAY ##1 11/01/16 mcg/actuation nasal spray,suspension (Flonase Allergy Relief) Allergies Allergy/AdvReac Type Severity Reaction Status Date / Time No Known Drug Allergies Allergy Verified 07/07/21 13:04 Review of Systems Musculoskeletal Musculoskeletal: Reports system reviewed and no additional complaints, except as documented Integumentary/Breasts Skin/Breast: Reports system reviewed and no additional complaints, except as d ocumented Neurologic Neurologic: Reports system reviewed and no additional complaints, except as documented Patient History Medical History Family history non-contributory Social History Smoking Status: Current every day smoker Smoking Status: Current every day smoker alcohol intake frequency: a few times a week Substance Use Type: marijuana Exam Initial Vital Signs Initial Vital Signs: Vital Signs Temperature 97.9 F 11/02/22 04:04 Pulse Rate 102 H 11/02/22 04:04 Respiratory Rate 18 11/02/22 04:04 Blood Pressure 142/84 H 11/02/22 04:04 Pulse Oximetry 98 11/02/22 04:04 Oxygen Delivery Method Room Air 11/02/22 04:04 Cardio Pulses: radial pulses present on the right Skin Other: Patient with a 1 cm irregular laceration on the palm of his right hand just distal to the wrist. No active bleeding. Neuro Sensory Exam: no sensory deficits noted Procedures Laceration Repair Laceration 1: Site: hand Side (If applicable): right Size (cm): 1 Description: irregular Depth: simple, single layer Local Anesthetic: lidocaine 1% Amount of anesthesia used (mL): 3 Pre-repair: wound explored Skin layer closed with: nylon Skin layer suture size: 4-0 Number of sutures: 4 Technique: simple, interrupted Course Orders Ordered: Discontinued Medications Bacitracin (Bacitracin Oint 0.9 Gm Pckt) 1 applic TOP NOW ONE Stop: 11/02/22 04:39 Lidocaine HCl (Lidocaine 1% (Pf) 5 Ml) 5 ml INJ NOW ONE Stop: 11/02/22 04:18 Last Admin: 11/02/22 04:21 Dose: 5 ml Documented By: HUANG Vital Signs Vital signs: Vital Signs - 8 hr 11/02/22 04:04 Temperature 97.9 F Pulse Rate 102 H Respiratory Rate 18 Blood Pressure 142/84 H Pulse Oximetry 98 Oxygen Delivery Method Room Air MDM - Wound/Laceration MDM Narrative Medical decision making narrative: Patient is neurovascularly intact. There were no foreign bodies noted in the cut. Was closed as described above. Patient was given care instructions and return precautions. He expressed understanding and agreement. Discharge Plan Departure Patient Disposition: Home Clinical Impression: Laceration Instructions: DI for Laceration Repair Activity Restrictions/Additional Instructions: The stitches do need to be removed in the next 7-10 days. This can be done by the your primary doctor or the walk-in clinic. Until then you can put topical antibiotic ointment over the area. You can wash your hands like normal. Return to the emergency department for new symptoms Prescriptions: No Action fluticasone propionate [Flonase Allergy Relief] 9.9 ML spray,suspension 1 spray Intranasal QDAY Qty: 1 0RF Stand Alone Forms: Patient Portal/API
[2022-11-02] MEDS: LIDOCAINE 1% (PF) 5 ML INJ (04:21)
[2022-11-02] MEDS: BACITRACIN OINT 0.9 GM PCKT 1 APPLIC TOP (04:52)
== END 2022-11-02 05:01 | disposition home or self-care (01) ==
PROVIDERS: Emergency Provider Emergency Medicine
DX: S61.411A Laceration without foreign body of right hand, initial encounter (principal); W25.XXXA Contact with sharp glass, initial encounter
CPT/HCPCS: 12001; 99283

== ENCOUNTER 2022-11-26 08:24 | Emergency (ER) | payer BC, SELFPAY ==
[2022-11-26 08:55] VITALS: BP 141/88; PULSE 84; RESP 18; TEMP 37.3; O2SAT 96; BMI 22.4
--- NOTE | 2022-11-26 09:53 | PC.NURSE ---
pt states he has felt something weird in the area on his jaw for about a year but he woke up this morning with intense swelling and when he pushed on the sore spot with his tongue some puss came out with some blood into his mouth and he had intense pain in his ear. it also hurts to take a deep fast breath, swallow and touch his face. pt face does not appear to be swollen on the outside.
--- NOTE | 2022-11-26 10:01 | ED.GENADULT ---
HPI - General Adult General Chief complaint: Upper Respiratory Symptoms Stated complaint: LT ear swollen behind/spit blood T-1 Time Seen by Provider: 11/26/22 09:52 Source: patient Mode of arrival: Family Vehicle History of Present Illness HPI narrative: Patient is a 29-year-old male here for evaluation of some discomfort on the left side of his jaw that does affect his left ear. He stated that he felt like there was some swelling in that area. He pushed on this morning and some pus came out into his mouth. He is no specific dental pain. He states he has had tonsillar stones in the past and this is in the same area as that. Has not tried anything for the symptoms prior to arrival. Related Data Previous Rx's Medication Instructions Recorded fluticasone propionate 50 1 spray intranasal QDAY ##1 11/01/16 mcg/actuation nasal spray,suspension (Flonase Allergy Relief) penicillin V potassium 500 mg 500 mg PO QID 7 days #28 tabs 11/26/22 tablet Allergies Allergy/AdvReac Type Severity Reaction Status Date / Time No Known Drug Allergies Allergy Verified 11/26/22 08:55 Review of Systems Constitutional Constitutional: Reports system reviewed and no additional complaints, except as documented ENT Ears, Nose, Mouth, and Throat: Reports system reviewed and no additional complaints, except as documented Respiratory Respiratory: Reports system reviewed and no additional complaints, except as documented Integumentary/Breasts Skin/Breast: Reports system reviewed and no additional complaints, except as documented Patient History Medical History Family history non-contributory Social History Smoking Status: Current every day smoker Smoking Status: Current every day smoker alcohol intake frequency: a few times a week Substance Use Type: marijuana Exam Initial Vital Signs Initial Vital Signs: Vital Signs Temperature 99.1 F 11/26/22 08:55 Pulse Rate 84 11/26/22 08:55 Respiratory Rate 18 11/26/22 08:55 Blood Pressure 141/88 H 11/26/22 08:55 Pulse Oximetry 96 11/26/22 08:55 Oxygen Delivery Method Room Air 11/26/22 08:55 Const General: cooperative, comfortable and No ill appearing HENMT Head: normal to inspection and atraumatic Ears: TM's normal bilaterally Mouth: lip normal, tongue normal and salivary duct abnormal Teeth and gingiva: fair dentition Throat: posterior oropharynx normal Resp Effort & Inspection: normal respiratory effort Skin General: no rashes or lesions noted Neuro General: patient alert, patient awake and moves all extremities Course Vital Signs Vital signs: Vital Signs - 8 hr 11/26/22 08:55 Temperature 99.1 F Pulse Rate 84 Respiratory Rate 18 Blood Pressure 141/88 H Pulse Oximetry 96 Oxygen Delivery Method Room Air Medical Decision Making MDM Narrative Medical decision making narrative: Patient does have fullness along the left-sided mandibular ridge. No parotid gland tenderness. His left ear is unremarkable. He does have fair dentition but no obvious intraoral abscess. He could potentially have had a dental abscess that drained this morning. Plan will be is to place him on antibiotics. He was advised that he should follow-up with a dentist. He was given return precautions. He expressed understanding and agreement. Discharge Plan Departure Patient Disposition: Home Clinical Impression: Dental infection Activity Restrictions/Additional Instructions: I do recommend that you take the antibiotics as directed. Would advise that you follow-up with your primary care doctor and also make contact with a dentist. Return to the emergency department for new or worsening symptoms. [facility] Prescriptions: New penicillin V potassium 500 mg tablet 500 mg PO QID 7 Days Qty: 28 0RF No Action fluticasone propionate [Flonase Allergy Relief] 9.9 ML spray,suspension 1 spray Intranasal QDAY Qty: 1 0RF Referrals: Miscellaneous,[facility] [Primary Care Provider] - Stand Alone Forms: Patient Portal/API
== END 2022-11-26 10:16 | disposition home or self-care (01) ==
PROVIDERS: Emergency Provider Emergency Medicine
DX: K04.7 Periapical abscess without sinus (principal)
CPT/HCPCS: 99281

== ENCOUNTER → 2023-01-26 08:36 | Outpatient (CLI) | payer BC, SELFPAY ==
[2023-01-26 10:16] LABS: Influenza A - CEPHEID Flu A NEGATIVE (NEGATIVE); Influenza B - CEPHEID Flu B NEGATIVE (NEGATIVE); Respiratory Syncytial Virus Negative (Negative)
[2023-01-26 10:19] LABS: COVID-19 CEPHEID 4-PLEX PCR Negative (Negative)
== END ==
PROVIDERS: Visit Provider Nurse Practitioner Family
DX: R09.81 Nasal congestion (principal); Z20.822 Contact with and (suspected) exposure to COVID-19
CPT/HCPCS: 0241U

== ENCOUNTER 2023-04-08 11:43 | Emergency (ER) | payer BC, SELFPAY ==
[2023-04-08 11:47] VITALS: BP 139/85; PULSE 86; RESP 18; TEMP 37.3; O2SAT 98; BMI 23.0
--- NOTE | 2023-04-08 11:52 | PC.NURSE ---
Dr neff updated on c collar decline by pt.
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
[2023-04-08 13:15] VITALS: BP 138/77; PULSE 68; O2SAT 98
== END 2023-04-08 13:26 | disposition home or self-care (01) ==
PROVIDERS: Emergency Provider Emergency Medicine; PCP Family Medicine
DX: S16.1XXA Strain of muscle, fascia and tendon at neck level, initial encounter (principal); V89.2XXA Person injured in unspecified motor-vehicle accident, traffic, initial encounter
CPT/HCPCS: 72040; 99281; 99283